=== PATIENT | male | born 1985 | race Caucasian/White ===

== ENCOUNTER → 2017-03-09 | Outpatient (CLI) | payer BC ==
--- NOTE | 2017-03-09 13:26 | KCIC ---
Examination: 3 views of the left foot HISTORY: History of medial left foot pain for one year COMPARISON: None available Findings The alignment of the tarsal bones grossly appears unremarkable. The alignment of the metatarsophalangeal joints, interphalangeal joint grossly appears unremarkable. 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 IMPRESSION: 1. Os Naviculare. If there is focal pain MRI can be considered. 2. No acute osseous findings. Electronically signed by: Walker Jean-Baptiste MD (03/09/2017 1:23 PM)
== END | disposition home or self-care (01) ==
LOC: KCIC 10:52
PROVIDERS: ATTEND Nurse Practitioner Family
DX: M79.672 Pain in left foot (principal); M25.475 Effusion, left foot
CPT/HCPCS: 73630

== ENCOUNTER 2017-04-03 17:04 | Emergency (ER) | payer BC ==
[~2017-04-03] VITALS: Ht 182.9 cm; Wt 96.6 kg
[2017-04-03 17:57] VITALS: BP 121/69
[2017-04-03] MEDS ORDERED: NAPROXEN 500 MG TABLET PO STA (18:00)
[2017-04-03] MEDS ORDERED: CYCL10TA2 PO (18:12)
[2017-04-03] MEDS ORDERED: HYDR-971 PO (18:12)
[2017-04-03] MEDS ORDERED: NAPR500T8 PO (18:12)
--- NOTE | 2017-04-03 18:12 | PHYS DOC ---
Adult General Chief Complaint Chief Complaint: LOWER BACK PAIN OR INJURY HPI HPI Patient is a 32 year old male who presents with low back pain that began today. Patient states earlier this morning he lifted a 40 pound dog and immediately developed low back pain. He states he went to work and lifted a box approx. 35 pounds and developed more low back pain. Patient denies any pain radiating to bilateral lower extremities. Denies any loss of bowel bladder function. He prefers not to file his work injury as workman comp. Review of Systems Review of Systems Constitutional: Denies fever or chills [] GI: Denies abdominal pain, nausea, vomiting, bloody stools or diarrhea [] : Denies dysuria or hematuria [] Musculoskeletal: back pain Integument: Denies rash or skin lesions [] Neurologic: Denies headache, focal weakness or sensory changes [] Endocrine: Denies polyuria or polydipsia [] Current Medications Current Medications Current Medications Medications (Trade) Dose Ordered Sig/Kam Start Time Stop Time Status Last Admin Dose Admin Acetaminophen/ Hydrocodone Bitart (Lortab 5/325) 1 tab 1X ONCE 04/03/17 18:00 04/03/17 18:01 UNV Cyclobenzaprine HCl (Flexeril) 10 mg 1X ONCE 04/03/17 18:00 04/03/17 18:01 UNV Naproxen (Naprosyn) 500 mg 1X STAT 04/03/17 18:00 04/03/17 18:01 UNV Physical Exam Physical Exam Constitutional: Well developed, well nourished, no acute distress, non-toxic appearance. [] Lungs & Thorax: Bilateral breath sounds clear to auscultation [] Abdomen: Bowel sounds normal, soft, no tenderness, no masses, no pulsatile masses. [] Skin: Warm, dry, no erythema, no rash. [] Back: Diffuse paraspinal muscle tenderness to bilateral lumbar spine, no midline lumbar spine tenderness, no CVA tenderness. [] Extremities: No tenderness, no cyanosis, no clubbing, ROM intact, no edema. [] Neurologic: Alert and oriented X 3, normal motor function, normal sensory function, no focal deficits noted. [] Psychologic: Affect normal, judgement normal, mood normal. [] EKG EKG [] Radiology/Procedures Radiology/Procedures [] Course & Med Decision Making Course & Med Decision Making Pertinent Labs and Imaging studies reviewed. (See chart for details) Patient is in the ED with low back pain after lifting a 40 pound dog earlier in the morning and a 35 pound box at work today. We talked about radiology studies including x-rays. Patient states he'll follow-up with his own PCP tomorrow and would like something for pain. Prescriptions were given to him for pain medicine and muscle relaxers. He declined to file his work injury as workman comp. He does not have cauda equina syndrome symptoms. He was provided return precautions and discharged in stable condition. Dragon Disclaimer Dragon Disclaimer This electronic medical record was generated, in whole or in part, using a voice recognition dictation system. Departure Departure Impression: Primary Impression: Lumbosacral strain Disposition: 01 HOME, SELF-CARE Condition: STABLE Referrals: CAPRI BOYCE APRN (PCP) Follow-up with your doctor in 1-3 days Patient Instructions: Lumbosacral Strain Additional Instructions: You were seen for low back pain consistent with lumbar strain. You can ice or apply heat to the affected area. Follow up with your own doctor in the next 1-3 days. Take the prescribed medicines as prescribed. Do not drive or operate machinery on cyclobenzaprine or hydrocodone. Scripts Naproxen (NAPROXEN) 500 Mg Tablet. 1 TAB PO BID, #60 TAB 2 Refills Prov: THEODORA MCNEAL APRN 04/03/17 Hydrocodone/Apap 5-325 (NORCO 5-325 TABLET) 1 Each Tablet 1 TAB PO PRN Q6HRS Y for PAIN, #14 TAB 0 Refills Prov: THEODORA MCNEAL APRN 04/03/17 Cyclobenzaprine Hcl (CYCLOBENZAPRINE HCL) 10 Mg Tablet 1 TAB PO TID, #30 TAB Prov: THEODORA MCNEAL APRN 04/03/17 Problem Qualifiers Primary Impression: Lumbosacral strain Encounter type: initial encounter Qualified Codes: S39.012A - Strain of muscle, fascia and tendon of lower back, initial encounter THEODORA MCNEAL APRN Apr 03, 2017 18:12
[2017-04-03] MEDS ORDERED: CYCLOBENZAPRINE 10 MG TABLET. PO ONE (18:45)
[2017-04-03] MEDS ORDERED: HYDROcodone/APAP 5/325MG 1 TAB TABLET PO ONE (18:45)
== END 2017-04-03 18:34 | disposition home or self-care (01) ==
LOC: ER 17:04
DX: S39.012A Strain of muscle, fascia and tendon of lower back, initial encounter (principal); X58.XXXA Exposure to other specified factors, initial encounter; Y93.89 Activity, other specified; Y92.89 Other specified places as the place of occurrence of the external cause; Y99.8 Other external cause status
CPT/HCPCS: 99284